=== PATIENT | female | born 1935 | race Two or more races ===

== ENCOUNTER 2023-08-13 09:54 | Emergency (ER) | payer OTHER ==
[~2023-08-13] VITALS: Ht 162.6 cm; Wt 62.6 kg
[~2023-08-13 09:54] MED LIST: PREDNISOL5 ML; RAYOS5 MG
[2023-08-13 12:00] LABS: HEMATOCRIT 34.1 % (36.0-45.00); MEAN CELL VOLUME 87.6 fL (80.00-100.00); MEAN CORPUSCULAR HEMOGLOBIN 28.3 pg (27.00-32.0); MEAN CORPUSCULAR HGB CONC 32.3 g/dl (32.0-36.0); PLATELET COUNT 241 K/uL (150-450); RED BLOOD COUNT 3.89 M/uL (4.00-6.00); RED CELL DISTRIBUTION WIDTH 14.7 % (11.5-14.5)
[2023-08-13 13:20] LABS: ALBUMIN 3.3 gm/dL (3.4-5.0); BILIRUBIN TOTAL 0.34 mg/dL (0.3-1.2); CALCIUM 9.3 mg/dL (8.5-10.1); CREATININE SERUM 1.24 mg/dL (0.55-1.02); GFR 40.92; GLOBULINA 3.9 G/DL (2.4-3.5); POTASSIUM 4.04 mEq/L (3.5-5.1); TOTAL PROTEIN 7.2 gm/dL (6.4-8.2)
== END 2023-08-13 15:35 | disposition home or self-care (01) ==
LOC: ER 09:54
PROVIDERS: General Practice
DX: J45.901 Unspecified asthma with (acute) exacerbation (principal); J20.9 Acute bronchitis, unspecified; Z20.822 Contact with and (suspected) exposure to COVID-19
CPT/HCPCS: 36415; 71046; 94640; 96365; 96366; 99283; J2930